=== PATIENT | male | born 1950 | race Caucasian/White ===

== ENCOUNTER 2018-07-11 11:42 | Observation (INO) | payer OTHER, MEDICARE ==
[2018-07-11] MEDS ORDERED: ASPIRIN 81 MG PO STA (11:48)
[2018-07-11 12:18] LABS: Basophils % (A) 1 %; Eosinophils # (A) 0.1 k/uL (0-0.7); Eosinophils % (A) 2 %; HCT 35.2 % (39.0-53.0); HGB 12.1 gm/dL (13.0-17.5); Lymphocytes % (A) 20 %; MCH 33.3 pg (25.0-35.0); MCHC 34.3 g/dL (31.0-37.0); MCV 96.9 fL (80.0-100.0); Monocytes # (A) 0.3 k/uL (0-1.0); Monocytes % (A) 6 %; Neutrophils # (A) 3.5 k/uL (1.3-7.7); Neutrophils % (A) 69 %; Platelet Count 144 k/uL (150-450); RBC 3.64 m/uL (4.30-5.90); RDW 13.1 % (11.5-15.5)
[2018-07-11 12:31] LABS: Albumin 3.4 g/dL (3.5-5.0); Calcium 9.3 mg/dL (8.4-10.2); Magnesium 1.4 mg/dL (1.6-2.3); Potassium 4.8 mmol/L (3.5-5.1); Total Bilirubin 0.5 mg/dL (0.2-1.3); Total Protein 6.2 g/dL (6.3-8.2)
--- NOTE | 2018-07-11 12:33 | XR ---
EXAMINATION TYPE: XR chest 2V DATE OF EXAM: 07/11/2018 COMPARISON: NONE HISTORY: Dysrhythmia TECHNIQUE: Frontal and lateral views of the chest are obtained. FINDINGS: There is no focal air space opacity, pleural effusion, or pneumothorax seen. The cardiac silhouette size is within normal limits. The osseous structures are intact. There are overlying car diac leads. Patient is rotated. Surgical clips present in the upper abdomen. There may be a spinal cu rvature. The listhesis is IMPRESSION: No acute cardiopulmonary process.
[2018-07-11 12:40] LABS: Creatine Kinase 78 U/L (55-170)
[2018-07-11 12:42] LABS: Partial Thromboplastin Time 23.1 sec (22.0-30.0)
[2018-07-11 12:53] LABS: Creatine Kinase MB 1.1 ng/mL (0.0-2.4); Troponin I <0.012 ng/mL (0.000-0.034)
[2018-07-11] MEDS ORDERED: MAGNESIUM SULFATE-D5W PMX 1 GM in DEXTROSE/WATER 1 100ML.BAG IVPB ONE (13:50)
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
[2018-07-11] MEDS ORDERED: NITROGLYCERIN SL TABS 0.4 MG TAB SUBLINGUAL PRN (14:41)
[2018-07-11] MEDS ORDERED: HEPARIN SODIUM,PORCINE 5,000 UNIT/ML 1 ML VIAL IV ONE (14:41)
[2018-07-11] MEDS: SODIUM CHLORIDE 0.9% 1,000 ML IV SCH (16:34)
[2018-07-11] MEDS: HEPARIN SOD,PORK IN 0.45% NACL 25,000 UNIT in 0.45% NACL 1 500ML.BAG IV SCH (17:55)
[2018-07-11] MEDS: NITROGLYCERIN OINT 1 INCH/GM PACKET TOPICAL SCH ×2 (17:56→20:24)
[2018-07-11 18:34] VITALS: RESP 18
[2018-07-11 18:52] LABS: Creatine Kinase MB 1.4 ng/mL (0.0-2.4); Troponin I 0.016 ng/mL (0.000-0.034)
[2018-07-11] MEDS: PANTOPRAZOLE 40 MG TABLET PO SCH (20:19)
[2018-07-11] MEDS: ATORVASTATIN 10 MG TAB PO SCH (20:19)
[2018-07-11 20:34] LABS: Glucose,Whole Blood 111 mg/dL (75-99)
[2018-07-11] MEDS ORDERED: ACETAMINOPHEN TAB 500 MG TAB PO PRN (22:08)
[2018-07-11] MEDS ORDERED: TEMAZEPAM 15 MG CAP PO PRN (22:08)
[2018-07-11] MEDS ORDERED: ALPRAZolam 0.25 MG TAB PO PRN (22:08)
--- NOTE | 2018-07-11 22:53 | HP ---
HISTORY AND PHYSICAL DATE OF SERVICE: 07/11/2018 CHIEF COMPLAINT: Chest pain. No palpitations. HISTORY OF PRESENT ILLNESS: This 67-year-old gentleman with a past medical history of diabetes, GERD, hypertension, hyperlipidemia, prostate disorder [facility] [place] was admitted with chest discomfort and as well as palpitations. Patient felt burning sensation in the anterior part of the chest which persisted. Subsequently, patient fluttering of the chest and the patient also had some lightheadedness and because of multiple symptomatology, patient taken to [facility] and found to have atrial fibrillation with rapid ventricular rate. Subsequently, patient converted to normal sinus rhythm and was admitted to the hospital for further evaluation and treatment. There is no history of fever, rigors or chills. No history of headache, loss of consciousness, seizures. PAST MEDICAL HISTORY: History of diabetes type 2, history of GERD, hypertension, hyperlipidemia, history of prostate disorder. MEDICATIONS: Prior to admission include home medications are: 1. Protonix 40 mg q.h.s. 2. Prilosec 20 mg a.c. breakfast. 3. Multivitamins one p.o. daily. 4. Vitamin B12 500 mcg daily. 5. Flomax 0.4 daily. 6. Fish oil 1 p.o. daily. 7. Lipitor 10 mg q.h.s. 8. Ecotrin 81 mg p.o. daily. 9. Zestoretic 1 tablet p.o. daily. ALLERGIES: None. FAMILY HISTORY: No history of heart disease or strokes in family. SOCIAL HISTORY: Previous history of smoking. Occasional alcohol intake. REVIEW OF SYSTEMS: ENT: No diminished hearing or vision. CARDIOVASCULAR: As mentioned. RESPIRATORY : As mentioned earlier. GI: No nausea or vomiting. no dysuria. No hematuria. Nervous system: No numbness or weakness. Allergy/Immunology: No asthma or hayfever. Musculoskeletal as mentioned earlier. HEMATOLOGY/ONCOLOGY: No history of anemia. ENDOCRINE: No history of diabetes or hypothyroidism. CONSTITUTIONAL: As mentioned earlier. DERMATOLOGY: Negative. RHEUMATOLOGY: Negative. PHYSICAL EXAMINATION: VITAL SIGNS: Pulse 60, irregular. Blood pressure 140/77, respiration 18, temperature 97 degrees, pulse ox 98% on room air. HEENT: Conjunctivae normal. Oral mucosa moist. Neck is no jugular venous distention. No carotid bruit. No lymph node enlargement. CARDIOVASCULAR SYSTEM: S1, S2 muffled. No S3, no S4. RESPIRATORY: Breath sounds diminished at the bases. No rhonchi. No crackles. ABDOMEN: Soft, nontender. No mass palpable. LEGS: No edema. No swelling. NERVOUS SYSTEM: Higher functions as mentioned earlier. Moves all 4 limbs. No focal motor or sensory deficits. LYMPHATICS: No lymph nodes palpable in the neck, axillae or groin. SKIN: No ulcer, rash or bleeding. LABS: WBC 5, hemoglobin 12.0, platelets 144, magnesium is 1.4. ASSESSMENT: 1. Chest pain possible unstable angina. 2. Atrial fibrillation with fast ventricular rate, paroxysmal atrial fibrillation. 3. Hypomagnesemia. 4. Diabetes mellitus type 2. 5. Gastroesophageal reflux disease. 6. Hypertension. 7. Hyperlipidemia. 8. History of fatty liver. 9. History of bariatric surgery. 10.Remote history of nicotine dependence. RECOMMENDATIONS AND DISCUSSION: In this 67-year-old gentleman who presented with multiple complex medical issues, we will monitor the patient closely. Continue the current medications. Continue symptomatic treatment. Otherwise, at this time, the patient is started on IV heparin. Cardiology consultation. 2D echo with Doppler. Resume the rest of medications. Rule out unstable angina transient protocol. Prognosis guarded. Further recommendations to follow. Discussed with the patient. Understands and agrees. A copy of dictated forwarded to Dr. Peralta who is the primary physician. We will also start the patient on beta blockers as well. MMODL / IJN: [id number] /
[2018-07-11] MEDS: METOPROLOL TARTRATE 12.5 MG TAB PO SCH (23:25)
[2018-07-12 00:29] LABS: Creatine Kinase MB 1.3 ng/mL (0.0-2.4); Troponin I 0.016 ng/mL (0.000-0.034)
[2018-07-12 01:02] LABS: Appearance,Urine Clear (Clear); Bilirubin,Urine Negative (Negative); Blood,Urine Negative (Negative); Color,Urine Yellow; Glucose,Urine (UA) Negative (Negative); Ketones,Urine Negative (Negative); Leukocyte Esterase,Urine Negative (Negative); Nitrite,Urine Negative (Negative); Protein,Urine Negative (Negative)
[2018-07-12 01:21] LABS: Amphetamine Screen,Urine Not Detected (NotDetected); Barbiturate Screen,Urine Not Detected (NotDetected); Benzodiazepines Screen,Urine Not Detected (NotDetected); Cocaine Screen,Urine Not Detected (NotDetected); Methadone Screen, Urine Not Detected (NotDetected); Opiate Screen,Urine Not Detected (NotDetected); Oxycodone Screen, Urine Not Detected (NotDetected); Phencyclidine Screen,Urine Not Detected (NotDetected); Tricyclic Antidepressant,Urine Not Detected (NotDetected); Urn Cannabinoid Scrn Not Detected (NotDetected)
[2018-07-12] MEDS: NITROGLYCERIN OINT 1 INCH/GM PACKET TOPICAL SCH ×4 (05:03→23:41)
[2018-07-12 05:15] LABS: Hemoglobin A1C 5.6 % (4.0-6.0)
[2018-07-12 06:20] LABS: Glucose,Whole Blood 108 mg/dL (75-99)
[2018-07-12] MEDS ORDERED: NON-FORMULARY DRUG (Omeprazole 20 MG) PO SCH (07:30)
[2018-07-12 07:33] LABS: Basophils % (A) 1 %; Eosinophils # (A) 0.1 k/uL (0-0.7); Eosinophils % (A) 3 %; HCT 37.6 % (39.0-53.0); HGB 12.1 gm/dL (13.0-17.5); Lymphocytes # (A) 1.5 k/uL (1.0-4.8); Lymphocytes % (A) 28 %; MCH 31.7 pg (25.0-35.0); MCHC 32.1 g/dL (31.0-37.0); MCV 98.9 fL (80.0-100.0); Mean Platelet Volume 8.2; Monocytes # (A) 0.3 k/uL (0-1.0); Monocytes % (A) 5 %; Neutrophils # (A) 3.1 k/uL (1.3-7.7); Neutrophils % (A) 61 %; Platelet Count 134 k/uL (150-450); RDW 13.1 % (11.5-15.5); WBC 5.1 k/uL (3.8-10.6)
[2018-07-12] MEDS: MULTIVITAMINS, THERA 1 EACH TAB PO SCH (07:38)
[2018-07-12] MEDS: METOPROLOL TARTRATE 12.5 MG TAB PO SCH ×2 (07:38→20:51)
[2018-07-12 07:39] LABS: Magnesium 1.5 mg/dL (1.6-2.3); Potassium 4.7 mmol/L (3.5-5.1)
[2018-07-12] MEDS: TAMSULOSIN 0.4 MG CAP.ER.24H PO SCH (07:41)
[2018-07-12] MEDS: ASPIRIN 325 MG TAB PO SCH (07:41)
[2018-07-12] MEDS: CYANOCOBALAMIN 500 MCG TAB PO SCH (07:41)
[2018-07-12] MEDS ORDERED: ASPIRIN 325 MG TAB PO STA (08:40)
[2018-07-12] MEDS ORDERED: ALPRAZolam 0.25 MG TAB PO PRN (08:40)
[2018-07-12] MEDS ORDERED: NITROGLYCERIN SL TABS 0.4 MG TAB SUBLINGUAL PRN (08:40)
[2018-07-12] MEDS ORDERED: SODIUM CHLORIDE 0.9% 1,000 ML in EMPTY BAG 1 BAG IV ONE (08:40)
[2018-07-12] MEDS ORDERED: ATORVASTATIN 80 MG TAB PO STA (08:40)
[2018-07-12] MEDS ORDERED: ALPRAZolam 0.5 MG TAB PO PRN (08:40)
[2018-07-12] MEDS ORDERED: NON-FORMULARY DRUG (Omega-3 Fatty Acids/Fish Oil [Fish Oil 1,000 Mg Softgel] 1 CAP) PO SCH (09:00)
--- NOTE | 2018-07-12 10:25 | CONS ---
CONSULTATION CHIEF COMPLAINT: Chest pain. Ismael is a 67-year-old gentleman with history of [id number]-[id number] diabetes, hypertension, dyslipidemia, and GERD, who presented to hospital complaining of palpitations and chest pain. He describes the chest discomfort as a burning pain, mild to moderate intensity in the precordial area. Subsequently, he had palpitations and lightheadedness. He came to the ER where he was initially in atrial fibrillation with rapid ventricular rate. Subsequently converted to sinus rhythm and stayed in sinus rhythm. His EKG shows left bundle branch block. Two sets of cardiac enzymes are negative. Given his multiple coronary risk factors and symptoms suggestive of unstable angina, I advised the patient to undergo cardiac catheterization for further evaluation. He had been explained of risks, benefits and alternatives, understood and accepted. PAST MEDICAL HISTORY: Past medical history is significant for GERD, hypertension, dyslipidemia, diabetes. CURRENT MEDICATIONS: Current medications include Protonix, Prilosec, multivitamin, Flomax, fish oil, Lipitor, aspirin, and Zestoretic. ALLERGIES: There are no known drug allergies. FAMILY HISTORY: Family history is negative for premature coronary artery disease. SOCIAL HISTORY: Social history is negative for smoking, EtOH abuse, or drug abuse. REVIEW OF SYSTEMS: HEENT is unremarkable. CARDIAC: As described above. RESPIRATORY: Negative. GI: Negative. GENITOURINARY: Negative. FURNITURE UPHOLSTERER APPRENTICE: Negative. ALLERGY/IMMUNOLOGY: Negative. MUSCULOSKELETAL: Negative. ENDOCRINE: Negative. HEMATOLOGIC: Negative. ONCOLOGIC: Negative. CONSTITUTIONAL: Negative. DERM: Negative. RHEUMATOLOGICAL: Negative. PHYSICAL EXAMINATION: On exam, patient is comfortable at rest. Afebrile. Heart rate is 68 beats per minute. Blood pressure 124/62, respirations 18, O2 sat is 98% on room air. There is no jugular venous distention. Carotid upstroke is normal. There is no bruit. Chest exam reveals good air entry bilaterally. Heart exam reveals first and second heart sounds. No gallop. No murmur. No rub. Abdomen is soft, nontender. Examination of the extremities did not reveal any edema. Peripheral pulses are felt. FURNITURE UPHOLSTERER APPRENTICE exam did not reveal focal neurological deficits. LABS: Labs show a hemoglobin of 12.1, potassium is 4.7, creatinine is 1.1. LDL cholesterol is 47. ASSESSMENT: 1. Unstable angina. 2. Paroxysmal atrial fibrillation. 3. Non-insulin diabetes. 4. Hypertension. PLAN: I advised the patient to undergo cardiac catheterization. He has been explained of risks, benefits and alternatives, understood and accepted on. The patient has paroxysmal atrial fibrillation and needs long-term anticoagulation and I will decide on this after doing the cardiac catheterization. JENIFFER / SEBASTIAN: [id number] /
[2018-07-12] MEDS: LISINOPRIL-HCTZ 10-12.5 MG 1 EACH TAB PO SCH (10:55)
[2018-07-12] MEDS: MAGNESIUM SULFATE-D5W PMX 1 GM in DEXTROSE/WATER 1 100ML.BAG IVPB SCH ×2 (11:52→16:38)
[2018-07-12 12:03] LABS: Glucose,Whole Blood 112 mg/dL (75-99)
[2018-07-12] MEDS ORDERED: MIDAZOLAM 2 MG/2 ML VIAL ONE (13:05)
[2018-07-12] MEDS ORDERED: LIDOCAINE 1% INJ 10MG/ML (20 ML MDV) ONE (13:05)
[2018-07-12] MEDS ORDERED: IV FLUID CONTINUATION 900 ML IV ONE (13:11)
[2018-07-12] MEDS ORDERED: MIDAZOLAM 2 MG/2 ML VIAL IVP ONE (13:11)
[2018-07-12] MEDS ORDERED: LIDOCAINE 1% INJ 10MG/ML (20 ML MDV) SQ ONE (13:13)
[2018-07-12] MEDS ORDERED: IOPAMIDOL-370 100ML BTL INJ ONE (13:25)
[2018-07-12] MEDS ORDERED: RX INFO: IV CONTRAST WAS GIVEN 1 EACH MISC MISCELLANE PRN (13:36)
--- NOTE | 2018-07-12 14:01 | CC ---
CARDIAC CATHETERIZATION REPORT INDICATION: Unstable angina. PROCEDURE NOTE: After obtaining informed consent, left heart catheterization and coronary angiogram were performed via the right femoral artery using standard Joan catheters. Patient tolerated the procedure well without any obvious immediate complications. A femoral angiogram was performed and decision was made for manual hemostasis. FINDINGS: 1. HEMODYNAMICS: Left ventricular end-diastolic pressure is 12 to 14 mm, there is no significant gradient across the aortic valve. 2. LEFT VENTRICULOGRAM. Left ventriculogram is not performed. 3. ANGIOGRAPHIC DATA: 4. LEFT MAIN CORONARY ARTERY: Left main coronary artery is a normal-sized vessel and is free of stenosis. Divides into left anterior descending coronary artery and circumflex coronary artery. LAD and its branches, circumflex coronary artery and its branches are free of significant stenosis. Right coronary artery is a large dominant vessel and is free of significant stenosis. CONCLUSION: 1. Normal coronary arteries. 2. Normal left ventricular end-diastolic pressure. PLAN: I reviewed angiographic data with the patient and told him that his chest discomfort is noncardiac in origin and management is going to be in the form of risk factor modifications, optimal medical therapy. He had paroxysmal episodes of atrial fibrillation and will be started on Eliquis if the groin is stable tonight and hopefully can be discharged home in the morning. MMODL / IJN: [id number] /
[2018-07-12] MEDS: SODIUM CHLORIDE 0.9% 1,000 ML IV SCH (16:37)
[2018-07-12] MEDS: HEPARIN SOD,PORK IN 0.45% NACL 25,000 UNIT in 0.45% NACL 1 500ML.BAG IV SCH (16:37)
[2018-07-12 16:59] LABS: Glucose,Whole Blood 98 mg/dL (75-99)
--- NOTE | 2018-07-12 17:24 | PN ---
PROGRESS NOTE DATE OF SERVICE: 07/12/2018 This 67-year-old gentleman, admitted with chest pain as well as atrial fibrillation, is being closely monitored. Cardiac catheterization done by Cardiology showed normal coronary arteries and normal LV end-diastolic pressure. No chest pain. No palpitations. No fever. On exam, alert and oriented x3. Pulse 56, blood pressure 144/84, respiration 18, temperature 98.4, pulse ox 96% on room air. HEENT: Conjunctivae normal. Oral mucosa moist. NECK: No jugular venous distention. No carotid bruit. No lymph node enlargement. CARDIOVASCULAR SYSTEM: S1, S2 muffled. RESPIRATORY SYSTEM: Breath sounds diminished at the bases. No rhonchi. No crackles. ABDOMEN: Soft, non-tender. NERVOUS SYSTEM: No focal deficit. LABS: WBC 5.1, hemoglobin 12.1, magnesium 1.5. ASSESSMENT: 1. Chest pain with cardiac catheterization showing normal coronary arteries. 2. Atrial fibrillation with fast ventricular rate, paroxysmal. 3. Hypomagnesemia. 4. Diabetes mellitus, type 2. 5. Gastroesophageal reflux disease. 6. Hypertension. 7. Hyperlipidemia. 8. History of fatty liver. 9. History of bariatric surgery. 10.Remote history of nicotine dependence. RECOMMENDATIONS AND DISCUSSION: I recommend to continue current medication, continue with the monitoring, symptomatic treatment. Otherwise, repeat labs. Closely follow. Guarded prognosis. Further recommendations to follow. MMODL / IJN: [id number] /
--- NOTE | 2018-07-12 20:02 | ECHOF ---
Referral Reason:chest pain MEASUREMENTS -------- HEIGHT: 175.3 cm WEIGHT: 91.2 kg BP: 124/62 RVIDd: 3.5 cm (< 3.3) IVSd: 1.3 cm (0.6 - 1.1) LVIDd: 5.1 cm (3.9 - 5.3) LVPWd: 1.5 cm (0.6 - 1.1) IVSs: 1.8 cm LVIDs: 3.4 cm LVPWs: 1.9 cm LA Diam: 3.7 cm (2.7 - 3.8) LAESV Index (A-L): 35.70 ml/m Ao Diam: 3.9 cm (2.0 - 3.7) AV Cusp: 2.3 cm (1.5 - 2.6) MV EXCURSION: 12.842 mm (> 18.000) MV EF SLOPE: 35 mm/s (70 - 150) EPSS: 1.2 cm MV E Mateusz: 0.74 m/s MV DecT: 316 ms MV A Mateusz: 1.17 m/s MV E/A Ratio: 0.63 RAP: 5.00 mmHg RVSP: 30.88 mmHg FINDINGS -------- Sinus rhythm. This was a technically adequate study. The left ventricular size is normal. There is moderate concentric left ventricular hypertrophy. O verall left ventricular systolic function is mild-moderately impaired with, an EF between 40 - 45 %. The right ventricle is mildly enlarged. LA is moderately dilated 34-39 ml/m2 The right atrium is normal in size. The aortic valve is trileaflet and appears structurally normal. The mitral valve leaflets are mildly thickened. Mild mitral annular calcification present. Mild m itral regurgitation is present. Mild tricuspid regurgitation present. Right ventricular systolic pressure is normal at < 35 mmHg. The pulmonic valve was not well visualized. The aortic root is dilated measuring 3.9cm. IVC Not well visulized. There is no pericardial effusion. CONCLUSIONS -------- 1. Sinus rhythm. 2. This was a technically adequate study. 3. The left ventricular size is normal. 4. There is moderate concentric left ventricular hypertrophy. 5. The right ventricle is mildly enlarged. 6. LA is moderately dilated 34-39 ml/m2 7. The right atrium is normal in size. 8. The aortic valve is trileaflet and appears structurally normal. 9. The mitral valve leaflets are mildly thickened. 10. Mild mitral annular calcification present. 11. Mild mitral regurgitation is present. 12. Mild tricuspid regurgitation present. 13. Right ventricular systolic pressure is normal at < 35 mmHg. 14. The pulmonic valve was not well visualized. 15. The aortic root is dilated measuring 3.9cm. 16. IVC Not well visulized. 17. There is no pericardial effusion. PEDIATRIC MEDICAL ASSISTANT: Maria C Galvan RDCS
[2018-07-12 20:44] LABS: Glucose,Whole Blood 142 mg/dL (75-99)
[2018-07-12] MEDS: PANTOPRAZOLE 40 MG TABLET PO SCH (20:51)
[2018-07-12] MEDS: ATORVASTATIN 10 MG TAB PO SCH (20:51)
[2018-07-12] MEDS: APIXABAN 5 MG TAB PO SCH (20:51)
[2018-07-13] MEDS: NITROGLYCERIN OINT 1 INCH/GM PACKET TOPICAL SCH ×2 (04:33→11:09)
[2018-07-13 06:07] LABS: Glucose,Whole Blood 112 mg/dL (75-99)
[2018-07-13 06:47] LABS: Basophils % (A) 1 %; Eosinophils # (A) 0.2 k/uL (0-0.7); Eosinophils % (A) 3 %; HCT 36.3 % (39.0-53.0); Lymphocytes # (A) 1.4 k/uL (1.0-4.8); Lymphocytes % (A) 26 %; MCH 31.5 pg (25.0-35.0); MCV 95.6 fL (80.0-100.0); Mean Platelet Volume 7.5; Monocytes # (A) 0.3 k/uL (0-1.0); Monocytes % (A) 6 %; Neutrophils # (A) 3.4 k/uL (1.3-7.7); Neutrophils % (A) 63 %; Platelet Count 130 k/uL (150-450); RBC 3.79 m/uL (4.30-5.90); RDW 13.1 % (11.5-15.5); WBC 5.5 k/uL (3.8-10.6)
[2018-07-13 06:56] LABS: Calcium 8.9 mg/dL (8.4-10.2); Potassium 4.5 mmol/L (3.5-5.1)
[2018-07-13] MEDS: METOPROLOL TARTRATE 12.5 MG TAB PO SCH (08:01)
[2018-07-13] MEDS: ASPIRIN 325 MG TAB PO SCH (08:01)
[2018-07-13] MEDS: TAMSULOSIN 0.4 MG CAP.ER.24H PO SCH (08:01)
[2018-07-13] MEDS: LISINOPRIL-HCTZ 10-12.5 MG 1 EACH TAB PO SCH (08:01)
[2018-07-13] MEDS: CYANOCOBALAMIN 500 MCG TAB PO SCH (08:01)
[2018-07-13] MEDS: APIXABAN 5 MG TAB PO SCH (08:01)
[2018-07-13 10:51] VITALS: TEMP 97.6
[2018-07-13 11:26] LABS: Glucose,Whole Blood 97 mg/dL (75-99)
[2018-07-13 12:19] VITALS: BP 122/75; PULSE 65
[2018-07-13] MEDS: MULTIVITAMINS, THERA 1 EACH TAB PO SCH (12:22)
--- NOTE | 2018-07-13 15:59 | P.PN ---
Subjective Progress Note Date: 07/13/18 This is a pleasant 67-year-old gentleman with history of diabetes, hypertension , dyslipidemia and GERD. Presented to the hospital complaining of palpitations and chest discomfort. Discomfort as a burning pain in the precordial area. Upon presentation he was initially in atrial fibrillation with rapid ventricular response and subsequently converted to sinus rhythm. He was recommended to undergo cardiac catheterization. This revealed normal coronary arteries and normal left ventricular end-diastolic pressure. Echocardiogram showed mild to moderately impaired LV systolic function with an ejection fraction between 40-45%. She was started on Eliquis and metoprolol 12.5 mg BID. On examination, patient is resting comfortably in bed. Denies further complaints of chest discomfort. He's not had any palpitations. He remains in sinus rhythm. Objective - Vital Signs Vital signs: Vital Signs Temp 97.6 F 07/13/18 08:00 Pulse 65 07/13/18 12:00 Resp 18 07/13/18 12:00 BP 122/75 07/13/18 12:00 Pulse Ox 97 07/13/18 12:00 Intake & Output 07/12/18 07/13/18 07/13/18 18:59 06:59 18:59 Intake Total 290 1200 180 Balance 290 1200 180 Weight 91.3 kg 91.1 kg Intake: IV 50 Intake, IV Titration 1200 Amount Magnesium Sulfate-D5w Pmx 200 1 gm In Dextrose/Water 1 100ml.bag @ 100 mls/hr IVPB Q1H REBECCA Rx#: [id number] Sodium Chloride 0.9% 1, 1000 000 ml In Empty Bag 1 bag @ 1 ML/KG/HR 91.3 mls/hr IV .[id number] Rx#: [id number] Oral 240 180 Other: # Voids 2 2 3 - Exam PHYSICAL EXAMINATION: HEENT: Head is atraumatic, normocephalic. Pupils equal, round. Neck is supple. There is no elevated jugular venous pressure. HEART EXAMINATION: Heart sounds regular, S1 and S2 normal. No murmur or gallop heard. CHEST EXAMINATION: Lungs are clear to auscultation and precussion. No chest wall tenderness is noted on palpation or with deep breathing. ABDOMEN: Soft, nontender. Bowel sounds are heard. No organomegaly noted. EXTREMITIES: 2+ peripheral pulses with no evidence of peripheral edema and no calf tenderness noted. Right femoral puncture site soft without ecchymosis or hematoma. NEUROLOGIC patient is awake, alert and oriented x3. . - Labs CBC & Chem 7: 07/13/18 06:26 07/13/18 06:26 Labs: Abnormal Lab Results - Last 24 Hours (Table) 07/12/18 07/13/18 07/13/18 Range/Units 20:41 06:03 06:26 RBC 3.79 L (4.30-5.90) m/uL Hgb 12.0 L (13.0-17.5) gm/dL Hct 36.3 L (39.0-53.0) % Plt Count 130 L (150-450) k/uL Chloride (98-107) mmol/L POC Glucose (mg/dL) 142 H 112 H (75-99) mg/dL 07/13/18 Range/Units 06:26 RBC (4.30-5.90) m/uL Hgb (13.0-17.5) gm/dL Hct (39.0-53.0) % Plt Count (150-450) k/uL Chloride 112 H (98-107) mmol/L POC Glucose (mg/dL) (75-99) mg/dL Assessment and Plan Assessment: #1 paroxysmal atrial fibrillation #2 symptoms of chest discomfort with cardiac catheterization showing normal coronary arteries #3 Nonischemic cardiomyopathy with ejection fraction of 40-45% #4 diabetes 5 hypertension Plan: From cardiology's perspective, continue Lipitor, Zestoretic, metoprolol and Eliquis. Patient may be discharged home today. He will follow-up as an outpatient in the office with Dr. Cates. The above dictated assessment and findings were discussed with signing physician. The impression and plan of care have been directed as dictated. Myra Hannah, Nurse Practitioner, acting as scribe for signing physician.
--- NOTE | 2018-07-14 07:18 | DS ---
DISCHARGE SUMMARY DATE OF SERVICE: 07/13/2018 FINAL DIAGNOSES: 1. Chest pain with cardiac catheterization showing normal coronary arteries, possibly nonspecific chest pain. 2. Atrial fibrillation with fast ventricular rate, paroxysmal. 3. Hypomagnesemia. 4. Diabetes mellitus type 2. 5. Gastroesophageal reflux disease. 6. Hypertension. 7. Hyperlipidemia. 8. History of fatty liver. 9. History of bariatric surgery. 10.Remote history of nicotine dependence. DISCHARGE DISPOSITION: The patient will be discharged in stable condition with guarded prognosis. Cardiology cleared the patient for the discharge. HISTORY OF PRESENT ILLNESS: This 67-year-old gentleman with a past medical history of multiple medical problems admitted with chest pain as well as atrial fibrillation. Patient was treated symptomatically. Cardiology saw the patient. Cardiac cath was normal as mentioned. A 2-D echo was reviewed. The patient improved significant. The patient follows with Dr. Peralta in the outpatient setting. On exam, vital signs are stable. CARDIOVASCULAR: S1, S2. ABDOMEN: Soft. NERVOUS SYSTEM: No focal deficits. DISCHARGE ADVICE: 1. Diet is cardiac. 2. Activity limited until followup. 3. Follow up with Dr. Peralta, [facility], in 2 to 3 days. 4. Follow up with Cardiology, Dr. Erika Cates, as advised. Medications are: 1. Ecotrin 81 mg p.o. daily. 2. Lipitor 10 mg q.h.s. 3. Vitamin B12, 500 mcg p.o. daily. 4. Lisinopril-hydrochlorothiazide 10/12.5 mg p.o. daily. 5. Multivitamins 1 p.o. daily. 6. [place]-3 fatty acids 1 p.o. daily. 7. Prilosec 20 mg daily. 8. Protonix 40 mg q.h.s. 9. Flomax 0.4 daily. 10.Eliquis 5 mg p.o. b.i.d. 11.Lopressor 12.5 mg p.o. b.i.d. Once again, the patient will be discharged in a stable condition with guarded prognosis. MMODL / IJN: [id number] /
== END 2018-07-13 13:36 | disposition home or self-care (01) ==
LOC: EC 11:42 → 6SEL 15:24
PROVIDERS: ADMIT Hospitalist; ATTEND Hospitalist
DX: R07.89 Other chest pain (principal); I48.0 Paroxysmal atrial fibrillation; E83.42 Hypomagnesemia; I44.7 Left bundle-branch block, unspecified; I11.9 Hypertensive heart disease without heart failure; I43 Cardiomyopathy in diseases classified elsewhere; K21.9 Gastro-esophageal reflux disease without esophagitis; E11.9 Type 2 diabetes mellitus without complications; N42.9 Disorder of prostate, unspecified; E78.5 Hyperlipidemia, unspecified; K76.0 Fatty (change of) liver, not elsewhere classified; Z79.82 Long term (current) use of aspirin; Z79.899 Other long term (current) drug therapy; Z98.84 Bariatric surgery status; Z87.891 Personal history of nicotine dependence; Z87.828 Personal history of other (healed) physical injury and trauma
CPT/HCPCS: 96361; 96366; 96365; 96375; 99291; 36415; 93005; 93306; 93458; 80061; 80053; 80048 ×2; 82550; 82553; 83735 ×2; 84443; 84484; 85025 ×3; 85610; 85730 ×2; 81003; 80306; 83036; 71046; G0378 ×3; C1894; C1769; J2250; J1644 ×2; J2001; J3475 ×2; Q9967

== ENCOUNTER 2019-07-31 11:40 | Day surgery (SDC) | payer MEDICARE, OTHER ==
[2019-07-31] MEDS: SODIUM CHLORIDE 0.9% 1,000 ML IV SCH (12:31)
[2019-07-31] MEDS ORDERED: FUROSEMIDE 10 MG/ML 2 ML VIAL ONE (13:53)
[2019-07-31] MEDS ORDERED: PROPOFOL 10 MG/ML 20 ML VIAL IV ONE (13:53)
[2019-07-31] MEDS ORDERED: HYDROmorphone (PF) 1 MG/ML ONE (13:53)
[2019-07-31] MEDS ORDERED: MIDAZOLAM 2 MG/2 ML VIAL ONE (13:53)
[2019-07-31] MEDS ORDERED: SUCCINYLCHOLINE CHLORIDE 100 MG/5 ML SYR IV ONE (13:53)
[2019-07-31] MEDS ORDERED: PROTAMINE SULFATE 10 MG/ML 5 ML VIAL IV ONE (13:53)
[2019-07-31] MEDS ORDERED: HEPARIN SODIUM,PORCINE 10,000 UNIT/ML 1 ML VIAL ONE (13:53)
[2019-07-31] MEDS ORDERED: fentaNYL (PF) 50 MCG/ML 2 ML AMP ONE (13:53)
[2019-07-31] MEDS ORDERED: ISOPROTERENOL 250 MCG/1.25 ML SYR IV ONE (13:53)
[2019-07-31] MEDS ORDERED: LIDOCAINE 1% INJ 10MG/ML (20 ML MDV) ONE (14:06)
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
[2019-07-31] MEDS ORDERED: LIDOCAINE 1% INJ 10MG/ML (20 ML MDV) SQ ONE (14:52)
[2019-07-31] MEDS ORDERED: HEPARIN SOD,PORK IN 0.45% NACL 25,000 UNIT in 0.45% NACL 1 250ML.BAG IV ONE (15:01)
[2019-07-31] MEDS ORDERED: SODIUM CHLORIDE 0.9% 500 ML 500 ML IV ONE (16:14)
[2019-07-31] MEDS ORDERED: ACETAMINOPHEN TAB 325 MG TAB PO PRN (16:57)
[2019-07-31] MEDS ORDERED: HYDROcodone/APAP 5-325MG 1 EACH TAB PO PRN (16:57)
[2019-07-31] MEDS ORDERED: IOPAMIDOL-370 100ML BTL INJ ONE (17:06)
--- NOTE | 2019-07-31 17:16 | P.PCN ---
Preoperative Diagnosis: Diagnosis Symptomatic paroxysmal atrial fibrillation, frequent, daily episodes, mild nonischemic cardiomyopathy Pipe Coverer: Dr. Buitrago, pharmacy innovation assistant: Neena Lofton PA-C Result No left atrial appendage mass seen on intracardiac echo Successful pulmonary vein isolation of left veins using cryo-ablation Complete entrance block in left veins confirmed Transient phrenic nerve paresis during cryoablation of the right superior, 89 seconds Rapid complete resolution of phrenic nerve function Right inferior pulmonary vein was not attempted since the phrenic nerve was in close proximity A. fib was noninducible on high-dose Isuprel Esophageal deflection YES Electrical cardioversion with a synchronized shock across the chest NO Procedure details Patient was brought to the EP lab in a fasting state. Written informed consent was obtained prior to the procedure. Procedure performed under general anesthesia After initial muscle relaxant use, muscle relaxants were not given thereafter in order to assess phrenic nerve during procedure. Patient prepped and draped as per protocol Full cryo-set up with standard preparation of the cryoablation tools done. Femoral Venous access obtained on the right and left groins Venous and arterial Sheaths placed. Diagnostic catheters for the high right atrium, phrenic nerve stimulation and pacing, His bundle, RV and coronary sinus placed Intracardiac echo catheter placed. Long sheath placed in the right atrium Left and right transseptal catheterization performed under intracardiac echo guidance. Intravenous heparin with aCT above 300 Later, catheter positioning and balloon positioning in the left atrium, under intracardiac echo guidance Diagnostic EP study with Isuprel Drug infusion Coronary sinus pacing and recording Baseline measurements QRS width was 134 ms Sinus cycle length 1023 ms QT 444 mg as A 76 ms HV 54 ms SNRT at 600 ms was 1327 AV node Wenckebach block at 450 ms VA Wenckebach block greater than 590 ms Atrial pacing performed from the high right atrium and the coronary sinus RV pacing Transseptal catheterization performed RA pressure [] LA pressure [14/02/10] Transseptal catheterization performed with standard sheath. The cryoablation sheath was then placed with an over the wire exchange without any acute complications. The left sided pulmonary veins were isolated in the following sequence: Left superior followed by left inferior The cryo-ablation balloon was placed at the os of each vein 1.5 mL of IV dye was injected to confirm an occluded vein Goal during cryoablation was to achieve complete occlusion of the pulmonary vein, achieve -30 degrees C at 30 seconds and achieve -40 degrees C at 60 seconds and a time to effect of less than 60-90 seconds, . If not the balloon was repositioned to obtain this result After completion of Cryoblation with durations from 180-240 seconds, entrance block was confirmed with the Achieve circular catheter in a roving fashion around the antrum of the pulmonary veins Phrenic nerve pacing was performed from the SVC, right innominate vein area and diaphragm voltage was monitored. Diaphragmatic contractions were also monitored manually for strength of contraction. there was transient phrenic nerve paresis during cryoablation of the right superior, 89 seconds Rapid complete resolution of phrenic nerve function Right inferior pulmonary vein was not attempted since the phrenic nerve was in close proximity Parameter goals for each cryo freeze Complete occlusion of the appropriate vein -30 degrees C by 30 seconds -40 degrees C by 60 seconds Minimum between minus 40-55 degrees C Thaw time greater than 10 seconds Balloon visualized by intracardiac echo The esophagus was intubated. Esophageal Temperature monitoring with a CIRCA catheter formed. Esophageal deflection for hypothermia of the esophagus below 30 degrees C Left superior pulmonary vein Complete isolation, entrance block Left inferior pulmonary vein Complete isolation, entrance block At the end of the procedure the Achieve catheter was once again used to check for entrance block Phrenic nerve stimulation was performed to confirm diaphragmatic stimulation the end of the procedure Cine fluoroscopy was performed at the very end of the procedure to confirm movement of both diaphragms with inspiration and expiration At the end of the procedure the patient was extubated Heparin was reversed Venous sheaths were removed and hemostasis assured Procedures performed (PVI - CRYO Ablation) Diagnostic EP study CS pacing and recording Left and right transseptal catheterization Catheter the mapping of the tachycardia (NOT 3D mapping) Intracardiac echocardiography Pulmonary vein isolation with transseptal and comprehensive EPS, 10550 Drug Infusion +[id number]
[2019-07-31] MEDS ORDERED: ACETAMINOPHEN IV (For NPO) 1,000 MG in EMPTY BAG 1 BAG IVPB ONE (18:00)
[2019-07-31 18:57] VITALS: BMI 25.9
[2019-07-31] MEDS: OXYBUTYNIN CHLORIDE 5 MG TAB PO SCH (20:47)
[2019-07-31] MEDS: METOPROLOL TARTRATE 25 MG TAB PO SCH (20:47)
[2019-07-31] MEDS: APIXABAN 5 MG TAB PO SCH (20:48)
[2019-07-31] MEDS: PANTOPRAZOLE 40 MG TABLET PO SCH (20:49)
[2019-07-31] MEDS ORDERED: ATORVASTATIN 10 MG TAB PO SCH (21:00)
[2019-08-01 07:14] VITALS: RESP 18
--- NOTE | 2019-08-01 08:08 | P.DS ---
Providers Attending physician: Tk Buitrago Primary care physician: [facility] Course: Patient is doing well. He complains of a sore throat but he has no chest discomfort no dizziness lightheadedness no shortness of breath orthopnea PND His groins healing well that is no hematoma On examination he is afebrile 97.5F pulse rate is in the 60s blood pressure 131/71 mmHg normal respirations nonlabored Heart sounds S1 and S2 normal no murmurs or gallops or rub Breath sounds are clear no rhonchi no crackles Extremity is warm no edema No hematoma in both groins Twelve-lead ECG shows sinus rhythm normal AR (branch block QRS width 134 ms Impression Paroxysmal A. fib Very frequent paroxysms of atrial fibrillation, almost on a daily basis Mild cardio myopathy Underlying left bundle branch block Status post cryoablation of the left-sided pulmonary veins Right phrenic nerve in close proximity to the os of the right-sided veins hence cryoablation was withheld for the right-sided veins (risk of phrenic nerve injury was high) Suggest Continue current medications continue ELIQUIS Suture removal today After 3 months I will plan radiofrequency ablation for A. fibrillation The right-sided phrenic nerve will be tagged prior to ablation RF ablation will be performed at an atrial level to avoid the phrenic nerve In addition, Left-sided veins will be interrogated to assure durability of cryoablation performed yesterday This was explained to the family and the patient Patient Condition at Discharge: Stable Plan - Discharge Summary Discharge Rx Participant: No New Discharge Prescriptions: Continue Omeprazole [PriLOSEC] 20 mg PO BID Multivitamins, Thera [Multivitamin (formulary)] 1 tab PO DAILY Tamsulosin HCl [Flomax] 0.4 mg PO DAILY [place]-3 Fatty Acids/Fish Oil [Fish Oil 1,000 mg Softgel] 1 cap PO DAILY Atorvastatin [Lipitor] 10 mg PO HS Lisinopril-Hctz 10-12.5 mg [Zestoretic 10-12.5] 1 tab PO DAILY Apixaban [Eliquis] 5 mg PO BID #60 tab Oxybutynin Chloride 5 mg PO BID Metoprolol Tartrate [Lopressor] 25 mg PO BID Vitamin B 12 100 mcg PO BID Discharge Medication List Atorvastatin [Lipitor] 10 mg PO HS 07/11/18 [History] Lisinopril-Hctz 10-12.5 mg [Zestoretic 10-12.5] 1 tab PO DAILY 07/11/18 [History] Multivitamins, Thera [Multivitamin (formulary)] 1 tab PO DAILY 07/11/18 [History] [place]-3 Fatty Acids/Fish Oil [Fish Oil 1,000 mg Softgel] 1 cap PO DAILY 07/11/18 [History] Omeprazole [PriLOSEC] 20 mg PO BID 07/11/18 [History] Tamsulosin HCl [Flomax] 0.4 mg PO DAILY 07/11/18 [History] Apixaban [Eliquis] 5 mg PO BID #60 tab 07/13/18 [Rx] Metoprolol Tartrate [Lopressor] 25 mg PO BID 07/26/19 [History] Oxybutynin Chloride 5 mg PO BID 07/26/19 [History] Vitamin B 12 100 mcg PO BID 07/26/19 [History] Follow up Appointment(s)/Referral(s): Tomer Cates MD [STAFF PHYSICIAN] - 1 Week (Follow-up with Dr. Cates in one to 2 weeks) Activity/Diet/Wound Care/Special Instructions: Post EP study - Ablation instructions 1. Keep access sites dry for 2 days. 2. No heavy lifting or straining for 2 days. 3. Avoid bending the hips repeatedly for 2 days. 4. You may go up and down stairs slowly Call if the following is noted 1. Bleeding, increasing swelling or pain at the access sites. 2. Increasing chest discomfort, especially upon taking a deep breath. 3. Increasing shortness of breath, at rest or with exertion. 4. Undue cough / phlegm 5. Difficulty or pain while swallowing. 6. Pain or change in color in the extremities. 7. Fever, chills, rigors. 8. Increasing headache or neurologic symptoms. 9. Dizziness, fainting, palpitations Continue all cardiac medications including eliquis Discharge Disposition: HOME SELF-CARE
--- NOTE | 2019-08-01 08:13 | P.PRLE ---
RE: Ismael Zimmerman Dear Jeovanny Guevara underwent cryoablation of the pulmonary veins yesterday. The left-sided veins was successfully ablated. However the right phrenic nerve was in very close proximity to the ostium of the right-sided pulmonary veins and therefore cryoablation of these veins was withheld, to avoid phrenic nerve injury After 3 months I will plan radiofrequency ablation for A. fibrillation The right-sided phrenic nerve will be tagged prior to ablation RF ablation will be performed at an atrial level to avoid the phrenic nerve In addition, Left-sided veins will be interrogated to assure durability of cryoablation performed yesterday Suggest Continue current medications continue ELIQUIS Continue all other cardiac medications This was explained to the family and the patient
[2019-08-01] MEDS: APIXABAN 5 MG TAB PO SCH (08:48)
[2019-08-01] MEDS: SODIUM CHLORIDE 0.9% 1,000 ML IV SCH (08:48)
[2019-08-01] MEDS: OXYBUTYNIN CHLORIDE 5 MG TAB PO SCH (08:48)
[2019-08-01] MEDS: PANTOPRAZOLE 40 MG TABLET PO SCH (08:48)
[2019-08-01] MEDS: METOPROLOL TARTRATE 25 MG TAB PO SCH (08:48)
[2019-08-01] MEDS ORDERED: TAMSULOSIN 0.4 MG CAP.ER.24H PO SCH (09:00)
[2019-08-01] MEDS ORDERED: LISINOPRIL-HCTZ 10-12.5 MG 1 EACH TAB PO SCH (09:00)
[2019-08-01 11:06] VITALS: BP 91/54; PULSE 53; TEMP 98.3
== END 2019-08-01 15:11 | disposition home or self-care (01) ==
LOC: CATHEP 11:40 → 1SOBS 17:17 → CATHEP 08-01 15:11
PROVIDERS: ATTEND Internal Medicine Clinical Cardiac Electrophysiology
DX: I48.0 Paroxysmal atrial fibrillation (principal); I42.0 Dilated cardiomyopathy; I10 Essential (primary) hypertension; E11.9 Type 2 diabetes mellitus without complications; I44.7 Left bundle-branch block, unspecified; K21.9 Gastro-esophageal reflux disease without esophagitis; M19.90 Unspecified osteoarthritis, unspecified site; Z82.49 Family history of ischemic heart disease and other diseases of the circulatory system; Z80.9 Family history of malignant neoplasm, unspecified; Z72.0 Tobacco use; Z98.49 Cataract extraction status, unspecified eye; Z98.84 Bariatric surgery status; Z79.01 Long term (current) use of anticoagulants; Z79.899 Other long term (current) drug therapy
CPT/HCPCS: 85347; 93623; 93662; 93609; 93656; C1769 ×5; C1894 ×2; C1893; C1733; C1730; J2250; J2720; J1644 ×2; J1940; J2001; J3010; J1170; J0330; J2704; Q9967

== ENCOUNTER 2019-10-15 05:36 | Day surgery (SDC) | payer OTHER ==
[2019-10-10 15:24] VITALS: BMI 27.3
[2019-10-15] MEDS: SODIUM CHLORIDE 0.9% 1,000 ML IV SCH (06:17)
[2019-10-15 07:19] LABS: Glucose,Whole Blood 91 mg/dL (75-99)
[2019-10-15] MEDS ORDERED: ROCURONIUM BROMIDE 10 MG/ML 10 ML VIAL IV ONE (07:35)
[2019-10-15] MEDS ORDERED: FUROSEMIDE 10 MG/ML 2 ML VIAL ONE (07:35)
[2019-10-15] MEDS ORDERED: LIDOCAINE 1% INJ 10MG/ML (20 ML MDV) ONE (07:35)
[2019-10-15] MEDS ORDERED: HEPARIN SODIUM,PORCINE 10,000 UNIT/ML 1 ML VIAL ONE (07:35)
[2019-10-15] MEDS ORDERED: PROPOFOL 10 MG/ML 20 ML VIAL IV ONE (07:35)
[2019-10-15] MEDS ORDERED: fentaNYL (PF) 50 MCG/ML 2 ML AMP ONE (07:35)
[2019-10-15] MEDS ORDERED: NEOSTIGMINE 1 MG/ML 10 ML VIAL ONE (07:35)
[2019-10-15] MEDS ORDERED: PROTAMINE SULFATE 10 MG/ML 5 ML VIAL IV ONE (07:35)
[2019-10-15] MEDS ORDERED: GLYCOPYRROLATE 0.2 MG/ML 2 ML VIAL ONE (07:35)
[2019-10-15] MEDS ORDERED: HEPARIN SODIUM,PORCINE 5,000 UNIT/ML 1 ML VIAL ONE (07:35)
[2019-10-15] MEDS ORDERED: ePHEDrine SULFATE/0.9% NACL/PF 50 MG/5 ML SYRINGE IV ONE (07:35)
[2019-10-15] MEDS ORDERED: SUCCINYLCHOLINE CHLORIDE 100 MG/5 ML SYR IV ONE (07:35)
[2019-10-15] MEDS ORDERED: MIDAZOLAM 2 MG/2 ML VIAL ONE (07:35)
[2019-10-15] MEDS ORDERED: LIDOCAINE URO-JET JELLY 2% 5 ML KIT ONE (07:51)
[2019-10-15] MEDS ORDERED: HEPARIN SOD,PORK IN 0.45% NACL 25,000 UNIT in 0.45% NACL 1 250ML.BAG IV ONE ×2 (07:57)
[2019-10-15] MEDS ORDERED: HEPARIN SODIUM (1,000 UNIT/ML) 1,000 UNIT in SODIUM CHLORIDE 0.9% 1,000 ML IRRIGATION ONE ×2 (07:57→11:55)
[2019-10-15] MEDS ORDERED: LIDOCAINE URO-JET JELLY 2% 5 ML KIT URETHRAL ONE (08:13)
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
[2019-10-15] MEDS ORDERED: LIDOCAINE 1% INJ 10MG/ML (20 ML MDV) SQ ONE (08:43)
[2019-10-15 09:58] LABS: Calcium 8.2 mg/dL (8.4-10.2); Potassium 4.4 mmol/L (3.5-5.1)
[2019-10-15] MEDS ORDERED: SODIUM CHLORIDE 0.9% 1,000 ML IV ONE (10:12)
[2019-10-15] MEDS ORDERED: ACETAMINOPHEN TAB 325 MG TAB PO PRN (14:47)
[2019-10-15] MEDS ORDERED: HYDROcodone/APAP 5-325MG 1 EACH TAB PO PRN (14:47)
--- NOTE | 2019-10-15 14:52 | P.PCN ---
Preoperative Diagnosis: Diagnostic radiologic exam of the esophagus At the end of the EP procedure, radiographic evaluation of the esophagus was performed. There was no evidence for esophageal ulceration tear or perforation. Thereafter the barium was suctioned out carefully prior to extubation Reverse Trendelenburg position ordered for 12 hours
--- NOTE | 2019-10-15 14:57 | P.PCN ---
Preoperative Diagnosis: Summary of A. fib ablation 3-D electro-anatomic mapping of the left atrium was performed The left-sided veins were completely isolated from the prior ablation The phrenic nerve was tagged with pacing and it was in the antrum of the right superior veins RF ablation and wide [place] antral isolation of the right-sided veins was performed outside the phrenic nerve area with complete isolation of the right- sided veins However in the right-sided veins were interrogated there was an area deep inside the narda that still had electrical signals and was an isolated area 3-D electro-anatomic mapping with activation mapping revealed that this was either an SVC source or an epicardial source because the RF line's completely intact without any slow leak This right pulmonary venous antrum area was then paced and the SVC was mapped. The earliest site the SVC was ablated Thereafter the right pulmonary veins were mapped again at this small area within the narda was still active, consistent with an epicardial focus in between the SVC and the right superior pulmonary veins Linear ablation of the left atrial roof was also performed with complete block
[2019-10-15] MEDS ORDERED: ACETAMINOPHEN IV (For NPO) 1,000 MG in EMPTY BAG 1 BAG IVPB ONE (15:00)
[2019-10-15 15:10] LABS: Glucose,Whole Blood 127 mg/dL (75-99)
[2019-10-15 16:38] LABS: Glucose,Whole Blood 116 mg/dL (75-99)
[2019-10-15 16:41] VITALS: RESP 18
[2019-10-15] MEDS: PANTOPRAZOLE 40 MG TABLET PO SCH (17:40)
--- NOTE | 2019-10-15 18:40 | P.PRLE ---
RE: Ismael Zimmerman Dear Tomer Mr. Ismael Zimmerman underwent successful wide [place] antral isolation of the right-sided pulmonary veins. As you remember he had undergone cryoablation of the left-sided pulmonary veins successfully with the right side could not be ablated because of phrenic nerve paresis which resolved very quickly During this EP study V. tach of right phrenic nerve did this was in an unusual location very antral in his position. After careful tagging of the right phrenic nerve, a very wide [place] antral isolation was performed for isolation of the pulmonary veins Linear ablation of the left atrial roof was also performed Both the RF lines was confirmed to be complete with voltage mapping However this gentleman has a focal atrial arrhythmia with an exit in the right narda of the right-sided pulmonary veins. With the detailed mapping it was confirmed that there was no leak in the RF line around the pulmonary veins but that this was an isolated area within the narda. RF ablation of the site did not result in termination of this focus Therefore the possibility of an SVC source that was exiting into the right-sided pulmonary veins or an epicardial source in between the SVC and the right-sided pulmonary veins was also considered The SVC exit site was also carefully mapped and was found to be in juxtaposition to this site in the right pulmonary venous narda RF ablation on both sides was performed but it did not result in termination of the focus. This represents a focal atrial tachycardia originating in the muscle strand that struggles between the SVC and the right superior pulmonary vein At this point radiofrequency ablation of the site is not feasible However I'm quite hopeful that his A. fib Bur[place] will be reduced significantly. He had experienced some reduction after the left-sided ablation and this current ablation should provide further relief However he has a left bundle branch block at baseline On intracardiac echo his LV function appeared quite reasonable This gentleman complains of a lot of fatigue and tiredness and I wonder if it is something other than atrial fibrillation that is causing the symptoms. He is on low-dose metoprolol at this time He should be watched for sick sinus syndrome to see if this is the cause of his symptoms I have sent his TSH level once again today Thank you for entrusting me with the care of the patient Warm regards Sincerely Tk Buitrago
[2019-10-15] MEDS: APIXABAN 5 MG TAB PO SCH (20:16)
[2019-10-15] MEDS: METOPROLOL TARTRATE 25 MG TAB PO SCH (20:16)
--- NOTE | 2019-10-15 20:50 | PCN ---
PROCEDURE NOTE This is a 69-year-old male patient who was brought in for atrial fibrillation ablation. He previously had a cryoablation performed successfully for the left-sided veins, but on account of transient phrenic nerve paresis with an onset of 89 seconds, we could not ablate the right side. Complete recovery was noted. He was brought in for an EP study and radiofrequency ablation for atrial fibrillation. The patient stated that he had a reduction in his episodes of atrial fibrillation after the first ablation, but he would still continue to have episodes quite frequently lasting for about 4 hours. He also complained of tiredness and fatigue. Patient was brought to the EP lab in a fasting state. Written informed consent was obtained prior to the procedure. The right and left groins prepped and draped as per protocol. A venous sheath was placed in the right femoral vein and two venous sheaths in the left femoral vein. Via these, diagnostic catheters were positioned in the right heart as well as later in the left heart. Phrenic nerve pacing was performed from the SVC. Coronary sinus pacing was performed. AH and HV intervals were noted. RV pacing and HRA pacing were performed. Subsequently LV pacing was also performed after successful ablation of the pulmonary veins. The patient was in sinus rhythm at the start of the study. During the procedure the patient would go into atrial fibrillation with catheter manipulation in the anterior antrum of the right-sided veins. Sinus cycle length was 103 milliseconds, GA interval 165 milliseconds, QRS 163 milliseconds, QT interval 498 milliseconds. AH interval 89 milliseconds, HV interval 76 milliseconds. Right and left transseptal catheterization was performed after intracardiac echo. Intracardiac echo revealed a large left atrial appendage. No intracardiac mass or thrombus. Successful transseptal catheterization was performed. LV pressure 11/0/3 mmHg. With a PentaRay catheter, 3D electroanatomic mapping was performed of the left atrium. The left-sided pulmonary veins were completely quiescent. However, the right-sided pulmonary veins were still active, both right superior and right inferior. Using an RF ablation catheter, mapping of the right phrenic nerve was performed. The phrenic nerve was very antral in its location and was outside the right superior pulmonary vein and anterior nadra. The entire right antrum was paced in multiple locations to the exact location of the phrenic nerve. The phrenic nerve sat predominantly on the anterior aspect of the antrum of the right superior pulmonary vein down to its narda. It was not anterior to the right inferior pulmonary vein or its antrum, since the right inferior pulmonary vein had a rather posterior position. RF ablation was carefully performed and a wide [place] antral isolation was made around the right-sided pulmonary veins well outside and more than 1 cm from the phrenic nerve location. Esophageal deflection had to be performed for the posterior antrum and a complete isolation was performed. However, despite complete RF line of block, signals were noted in the narda just below the right superior pulmonary vein ostium. The PentaRay catheter was then placed once again and a detailed map was performed, both activation map during CS pacing as well as scar map. These maps revealed that there was no gap in the conduction of the lines, both anterior and posterior. Rather, this was an isolated segment within the right superior narda and was about 8 to 10 mm away from the right phrenic nerve location. RF applications were applied here but did not result in elimination of the electrograms. However, when the anterior was mapped, atrial fibrillation could not be induced mechanically. Therefore, activation mapping of the SVC was performed while pacing was performed exactly at this site in the right anterior narda. The exact exit from the SVC was mapped carefully and RF ablation was performed at this site to eliminate the possibility of an SVC source that was exiting into the right superior pulmonary vein. However, when the right superior pulmonary was mapped once again, this carinal focus still remained. Therefore, despite documenting complete RF ablation along the anterior antrum as well as in the posterior antrum, ablation of the focal site in the right anterior narda as well as in the earliest site in the SVC, this site could not be ablated. This probably represents a focus within the muscle strand between the SVC and the right superior pulmonary vein. When the right atrial/SVC map and the left atrial maps were placed together, both sides were found to be in juxtaposition to each other, but despite RF ablation of these sites with a second RF ablation catheter, this site could not be ablated due to its epicardial location. AV node Wenckebach block 300 milliseconds. Ventricular pacing was performed. But we were able to induce a slow irregular atrial rhythm/atrial fibrillation with straight pacing. RESULT: Linear ablation of the left atrial roof had also been performed prior to that. A complete line of block was made from the left superior to the right superior pulmonary veins somewhat anteriorly. Once this line was completed, scar mapping/voltage mapping was performed with a PentaRay catheter to ensure that this was a complete line of block. The esophagus was centrally located but quite close to the right posterior antrum, since this was a very wide [place] antral isolation. After esophageal deflection and after completion of the EP study, radiographic evaluation of the esophagus was performed to document absence of any esophageal ulceration, tear or perforation. The patient tolerated the procedure well without any acute complications. All catheters were removed and hemostasis was assured. PLAN: Continue anticoagulation with apixaban. Continue low-dose metoprolol. Continue antihypertensive therapy. The intracardiac echo also showed that the LV function was fairly well preserved and there was no pericardial effusion at the end of the procedure. JENIFFER / IJN: [id number] /
[2019-10-15] MEDS ORDERED: ATORVASTATIN 10 MG TAB PO SCH (21:00)
[2019-10-16] MEDS: SODIUM CHLORIDE 0.9% 1,000 ML IV SCH (06:14)
[2019-10-16 08:01] VITALS: BP 114/62; PULSE 67; TEMP 98.1
[2019-10-16] MEDS: PANTOPRAZOLE 40 MG TABLET PO SCH (08:52)
[2019-10-16] MEDS: APIXABAN 5 MG TAB PO SCH (08:52)
[2019-10-16] MEDS: METOPROLOL TARTRATE 25 MG TAB PO SCH (08:52)
[2019-10-16] MEDS ORDERED: TAMSULOSIN 0.4 MG CAP.ER.24H PO SCH (09:00)
[2019-10-16] MEDS ORDERED: LISINOPRIL-HCTZ 10-12.5 MG 1 EACH TAB PO SCH (09:00)
--- NOTE | 2019-10-16 11:22 | P.DS ---
Providers Attending physician: Tk Buitrago Primary care physician: [facility] Course: Patient is a 69-year-old male with past medical history significant for nonischemic cardiomyopathy, paroxysmal atrial fibrillation status post cryoablation of the left pulmonary veins, hypertension, and type 2 diabetes who presented for evaluation and management of atrial fibrillation. He has been having more frequent and longer episodes of symptomatic paroxysmal atrial fibrillation. Yesterday he underwent radiofrequency A. fib ablation. The patient has done well postprocedure, no acute events overnight. Patient seen and examined sitting in bed. Complains of a mild sore throat but was able to tolerate his breakfast well. No difficulty swallowing. Denies any chest pain or shortness of breath. No pleuritic chest discomfort. Denies any dizziness, palpitations or syncope. He has been able to get up and walk around without any issues. No bleeding issues. EKG today shows supraventricular rhythm with IVCD, ventricular rate 63 bpm, likely junctional rhythm which was also seen yesterday postprocedure at a rate of around 80 bpm Labs reviewed, BUN 25, creatinine 1.16, potassium 4.4 TSH elevated at 6 Patient seen and examined resting in bed, in no acute distress Patient is afebrile, pulse in the 60s, respirations 18, blood pressure 114/62, oxygen saturation 97% on room air Lungs are clear to auscultation bilaterally, no rhonchi wheezing or crackles Heart is regular, no audible murmurs or friction rubs No elevated JVD No lower extremity edema Groin access sites minimally tender to palpation bilaterally, no palpable hematomas noted Impression Symptomatic paroxysmal atrial fibrillation status post A. fib ablation Nonischemic cardiomyopathy, LV function improved Hypertension Diabetes Elevated TSH Evidence of conduction system disease, EKG showing junctional rhythm with IVCD Plan Discontinue metoprolol Monitor for sick sinus syndrome Start low-dose levothyroxine, check TSH in 6 weeks Continue anticoagulation Follow-up the patient Plan - Discharge Summary Discharge Rx Participant: No New Discharge Prescriptions: New Levothyroxine Sodium 25 mcg PO DAILY #90 tablet Continue Omeprazole [PriLOSEC] 20 mg PO BID Multivitamins, Thera [Multivitamin (formulary)] 1 tab PO DAILY Tamsulosin HCl [Flomax] 0.4 mg PO DAILY [place]-3 Fatty Acids/Fish Oil [Fish Oil 1,000 mg Softgel] 1 cap PO DAILY Atorvastatin [Lipitor] 10 mg PO HS Lisinopril-Hctz 10-12.5 mg [Zestoretic 10-12.5] 1 tab PO DAILY Apixaban [Eliquis] 5 mg PO BID #60 tab Oxybutynin Chloride 5 mg PO BID Metoprolol Tartrate [Lopressor] 25 mg PO BID Vitamin B 12 100 mcg PO BID Discharge Medication List Atorvastatin [Lipitor] 10 mg PO HS 07/11/18 [History] Lisinopril-Hctz 10-12.5 mg [Zestoretic 10-12.5] 1 tab PO DAILY 07/11/18 [History] Multivitamins, Thera [Multivitamin (formulary)] 1 tab PO DAILY 07/11/18 [History] [place]-3 Fatty Acids/Fish Oil [Fish Oil 1,000 mg Softgel] 1 cap PO DAILY 07/11/18 [History] Omeprazole [PriLOSEC] 20 mg PO BID 07/11/18 [History] Tamsulosin HCl [Flomax] 0.4 mg PO DAILY 07/11/18 [History] Apixaban [Eliquis] 5 mg PO BID #60 tab 07/13/18 [Rx] Metoprolol Tartrate [Lopressor] 25 mg PO BID 07/26/19 [History] Oxybutynin Chloride 5 mg PO BID 07/26/19 [History] Vitamin B 12 100 mcg PO BID 07/26/19 [History] Levothyroxine Sodium 25 mcg PO DAILY #90 tablet 10/16/19 [Rx] Follow up Appointment(s)/Referral(s): Tk Buitrago MD [STAFF PHYSICIAN] - As Needed Tomer Cates MD [STAFF PHYSICIAN] - 10/22/19 9:45 am Patient Instructions/Handouts: Cardiac Ablation (DC) Activity/Diet/Wound Care/Special Instructions: Post EP study - Ablation instructions 1. Keep access sites dry for 2 days. 2. No heavy lifting or straining for 2 days. 3. Avoid bending the hips repeatedly for 2 days. 4. You may go up and down stairs slowly Call if the following is noted 1. Bleeding, increasing swelling or pain at the access sites. 2. Increasing chest discomfort, especially upon taking a deep breath. 3. Increasing shortness of breath, at rest or with exertion. 4. Undue cough / phlegm 5. Difficulty or pain while swallowing. 6. Pain or change in color in the extremities. 7. Fever, chills, rigors. 8. Increasing headache or neurologic symptoms. 9. Dizziness, fainting, palpitations Continue apixaban all other cardiac medications Follow-up with Dr. Cates within a week Discharge Disposition: HOME SELF-CARE
--- NOTE | 2019-10-16 11:24 | P.PRLE ---
RE: Ismael Zimmerman Dear Wiliam Mr. Zimmerman underwent an A. fib ablation yesterday. Hopefully this was also a significant reduction in his A. fib wouldn't He had successful pulmonary vein isolation on the right side. He was able to avoid the right phrenic nerve successfully. The right phrenic nerve was intact to the end of the procedure He also had linear ablation of the left atrial roof However he has an epicardial focus of atrial fibrillation also most likely between the SVC and the right sided pulmonary veins. This cannot be accessed even surgically However I do anticipate that he will experiencing significant reduction in his A. fib episodes However this gentleman complains of significant tiredness and fatigue and I doubt if it is all from his paroxysmal A. fib His LV function has almost normalized now. The intracardiac echo showed his LV function was reasonably well preserved He did have junctional rhythm through the procedure and this morning once again he is in junctional rhythm at 60 beats a minute with a left bundle branch block morphology I checked his TSH and as before, it is mildly elevated, TSH 6.0 Therefore I would recommend stopping metoprolol as well as starting very low- dose levothyroxine to keep his TSH around 2.5 He will continue to follow with you and Dr. Manley as before Thank you for entrusting me with the care of the patient Warm regards Sincerely Tk Buitrago
== END 2019-10-16 12:32 | disposition home or self-care (01) ==
LOC: CATHEP 05:36 → 1SOBS 14:19 → CATHEP 10-16 12:32
PROVIDERS: ATTEND Internal Medicine Clinical Cardiac Electrophysiology
DX: I48.0 Paroxysmal atrial fibrillation (principal); I11.9 Hypertensive heart disease without heart failure; I42.8 Other cardiomyopathies; K44.9 Diaphragmatic hernia without obstruction or gangrene; E11.9 Type 2 diabetes mellitus without complications; K21.9 Gastro-esophageal reflux disease without esophagitis; M19.90 Unspecified osteoarthritis, unspecified site; N42.9 Disorder of prostate, unspecified; Z87.11 Personal history of peptic ulcer disease; Z98.84 Bariatric surgery status; Z98.42 Cataract extraction status, left eye; Z98.41 Cataract extraction status, right eye; Z87.891 Personal history of nicotine dependence; Z80.9 Family history of malignant neoplasm, unspecified; Z79.01 Long term (current) use of anticoagulants; Z79.899 Other long term (current) drug therapy
CPT/HCPCS: 85347; 93662; 93613; 93656; 80048; 84443; C1769 ×4; C1894; C1732 ×2; C1730; C1731; C1759; C1893; J2250; J2720; J1644 ×4; J1940; J2710; J2001; J3010; J0131; J0330; J2704